=== PATIENT | male | born 1940 | race Caucasian/White ===

== ENCOUNTER 2020-04-17 19:49 | Emergency (ER) | payer MEDICARE, OTHER ==
[~2020-04-17 19:49] MED LIST: Furosemide 40 MG/4 ML VIAL ONE
[2020-04-17] MEDS ORDERED: Furosemide 40 MG/4 ML VIAL IVPUSH ONE (19:54)
--- NOTE | 2020-04-17 20:05 | EDM.PDOC ---
ED HPI GENERAL MEDICAL PROBLEM - General Chief Complaint: Cardiovascular Problem Stated Complaint: [facility] Time Seen by Provider: 04/17/20 19:52 Source of Information: Reports: Patient, EMS History Limitations: Reports: Respiratory Distress - History of Present Illness INITIAL COMMENTS - FREE TEXT/NARRATIVE: Brought to the emergency Department [facility]. Patient had severe respiratory distress at home and on scene the patient had oxygen saturation 50% on room air. [facility] personnel administered nitroglycerin and started him on BiPAP with a mask. The patient apparently has a history of congestive heart failure and COPD. Family states that he receives medical care through the [facility] system. Onset: Today Duration: Chronic, Getting Worse Treatments MANAGER OF LOSS PREVENTION OPERATIONS: Reports: Other (see below) (Nitroglycerin and) - Related Data Allergies Allergy/AdvReac Type Severity Reaction Status Date / Time No Known Allergies Allergy Verified 04/17/20 19:55 Home Meds: Home Meds . [Unable to Verify Home Med List] 04/17/20 [History] Past Medical History Cardiovascular History: Reports: Heart Failure Respiratory History: Reports: COPD Endocrine/Metabolic History: Reports: Obesity/BMI 30+ Social & Family History - Living Situation & Occupation Living situation: Reports: ( does show in the emergency department to be at the patient's bedside. She complained to nursing staff to be unaware the patient had heart her lung problems) ED ROS GENERAL - Review of Systems Review Of Systems: See Below Constitutional: Denies: Fever Respiratory: Reports: Shortness of Breath Cardiovascular: Reports: Edema. Denies: Chest Pain Endocrine: Reports: Fatigue Neurological: Reports: No Symptoms Psychiatric: Reports: No Symptoms ED EXAM, GENERAL - Physical Exam Exam: See Below Exam Limited By: Respiratory Distress General Appearance: Alert, Anxious Nose: Normal Inspection Head: Atraumatic Respiratory/Chest: Other (Marked respiratory distress with a sensory muscle use) Cardiovascular: Normal Peripheral Pulses, Other (Tachycardia on bedside monitor) GI/Abdominal: Other (Markedly distended and obese. Nontender to palpation) Extremities: Other (Marked bilateral lower extremity edema pitting to the knee) Neurological: Alert Course - Vital Signs Text/Narrative:: BiPAP was continued during the emergency department stay. Prior to arrival in emergency department EMS did call for air transport. A she was here only a total of 20 minutes. EKG was performed during that time and the patient was administered 40 mg of Lasix IV. At 1958 I discussed the patient with Dr. Taylor from [facility] and the patient was accepted for transfer there. Last Recorded V/S: Last Vital Signs Temp 38.5 C H 04/17/20 20:11 Pulse 111 H 04/17/20 20:11 Resp 52 H 04/17/20 20:11 BP 168/88 H 04/17/20 20:11 Pulse Ox 100 04/17/20 20:11 - Orders/Labs/Meds Meds: Medications Discontinued Medications Generic Name Dose Route Start Last Admin Trade Name Stanley PRN Reason Stop Dose Admin Furosemide 40 mg 04/17/20 19:54 04/17/20 19:54 Lasix IVPUSH 04/17/20 19:55 40 mg ONETIME ONE Administration Departure - Departure Time of Disposition: 20:33 Disposition: DC/[facility] to [facility] Clinical Impression: COPD exacerbation Congestive heart failure Qualifiers: Heart failure type: combined systolic and diastolic Heart failure chronicity: acute on chronic Qualified Code(s): I50.43 - Acute on chronic combined systolic (congestive) and diastolic (congestive) heart failure - Discharge Information Referrals: PCP,None [Primary Care Provider] - Forms: ED Department Discharge Sepsis Event Note (ED) - Focused Exam Vital Signs: Vital Signs Temp Pulse Resp BP Pulse Ox 04/17/20 20:11 38.5 C H 111 H 52 H 168/88 H 100 04/17/20 19:56 109 H 50 H 136/76 100 04/17/20 19:49 36.4 C 105 H 52 H 135/78 100
== END 2020-04-17 20:20 | disposition critical access hospital (66) ==
LOC: JP.ED 19:49
DX: I50.43 Acute on chronic combined systolic (congestive) and diastolic (congestive) heart failure (principal); J44.1 Chronic obstructive pulmonary disease with (acute) exacerbation; E66.9 Obesity, unspecified; Z68.32 Body mass index [BMI] 32.0-32.9, adult
CPT/HCPCS: 96374; 99285; J1940; 93010